=== PATIENT | female | born 1995 | race American Indian/Alaskan Native ===

== ENCOUNTER 2024-07-17 08:26 | Emergency (ER) | payer MEDICAID | END 2024-07-17 09:56 | disposition home or self-care (01) | LOC: JP.ED 08:26 | DX: O92.79 Other disorders of lactation (principal); F17.210 Nicotine dependence, cigarettes, uncomplicated; Z86.16 Personal history of COVID-19 | CPT/HCPCS: 99283 ==

== ENCOUNTER 2024-09-16 14:46 | Emergency (ER) | payer MEDICAID ==
[2024-09-16 16:24] LABS: HEMATOCRIT 39.7 % (34.3-46.0); HEMOGLOBIN 13.7 g/dL (11.2-15.5); MEAN CORPUSCULAR HEMOGLOBIN 30.4 pg (31.6-35.5); MEAN CORPUSCULAR HGB CONC 34.5 g/dL (31.6-35.5); MEAN CORPUSCULAR VOLUME 88.2 fL (81.4-99.0); RED BLOOD CELL COUNT 4.5 M/uL (3.77-5.24)
[2024-09-16 16:42] LABS: PROTHROMBIN TIME 10.4 sec (9.2-10.6)
[2024-09-16 16:46] LABS: A/G RATIO 1.1 (1.2-2.2); ALANINE AMINOTRANSFERASE,ALT 71 U/L (12-78); ALBUMIN 3.9 g/dL (3.4-5.0); ALKALINE PHOSPHATASE 99 U/L (46-116); ASPARTATE AMNIOTRANSFERASE,AST 36 U/L (15-37); BILIRUBIN TOTAL 0.5 mg/dL (0.2-1.0); BLOOD UREA NITROGEN,BUN 10 mg/dL (7-18); CALCIUM 9.5 mg/dL (8.5-10.1); CARBON DIOXIDE,CO2 26 mmol/L (21-32); CHLORIDE,CL 104 mmol/L (100-108); CREATININE 0.7 mg/dL (0.6-1.0); EST CRCL DRUG DOSING (CG) 96.33 mL/min; ESTIMATED GFR 119 mL/min (>60); GLUCOSE RANDOM 95 mg/dL (74-106); PROTEIN TOTAL,TP 7.5 g/dL (6.4-8.2); SODIUM,NA 139 mmol/L (140-148)
== END 2024-09-16 19:14 | disposition home or self-care (01) ==
LOC: JP.ED 14:46
DX: R22.33 Localized swelling, mass and lump, upper limb, bilateral (principal); J45.909 Unspecified asthma, uncomplicated; Z86.16 Personal history of COVID-19; F17.210 Nicotine dependence, cigarettes, uncomplicated
CPT/HCPCS: 36415; 80053; 85027; 85379; 85610; 86140; 93970; 99283; 99285